=== PATIENT | female | born 1950 | race Two or more races ===

== ENCOUNTER 2019-10-13 15:47 | Emergency (ER) | payer SELFPAY ==
[2019-10-13] MEDS ORDERED: AMLODIPINE BESY10 MG ORAL (20:54)
--- NOTE | 2019-10-13 20:54 | Emergency Room Report ---
History of Present Illness General Chief Complaint: Hypertension Source: Patient Present Illness HPI 68-year-old female past mostly of hypertension, has been taking her grandmothers medications, endorses feeling lightheaded, blurred vision, states that her blood pressure is very high, presents with a blood pressure of 190, alleviated with blood pressure medication aggravated by not taking his blood pressure medication severity is mild, constant symptoms have been ongoing prior to arrival patient reports this happens when her blood pressure is elevated Allergies: Coded Allergies: No Known Allergies (Unverified , 10/13/19) Patient History Past Medical History: see triage record Reviewed Nursing Documentation: PMH: Agreed; PSxH: Agreed Review of Systems All Other Systems: negative except mentioned in HPI Physical Exam Non-tachycardic, systolic blood pressure 190s Sp02 EP Interpretation: reviewed, normal General Appearance: well appearing, no apparent distress, alert Head: normocephalic, atraumatic Eyes: bilateral eye PERRL, bilateral eye EOMI ENT: uvula midline, moist mucus membranes Neck: supple, thyroid normal, supple/symm/no masses Respiratory: lungs clear, no respiratory distress, no retraction, no accessory muscle use Cardiovascular #1: normal peripheral pulses, regular rate, rhythm, no edema, no gallop, no murmur Gastrointestinal: non tender, soft, no guarding, no rebound Musculoskeletal: normal inspection Neurologic: alert, oriented x3 Psychiatric: mood/affect normal Skin: no rash, warm/dry Medical Decision Making Diagnostic Impression: Primary Impression: Hypertension Qualified Codes: I10 - Essential (primary) hypertension ER Course Please note this patient's chart was retrospectively [facility] PM patient's chart was placed into the electronic record at approximately 8:48pm 68-year-old female presents with elevated blood pressure, patient was given 10 mg of amlodipine doubt ACS, blood work was drawn to evaluate patient, Reevaluation at 8:51 PM, patient's blood pressure is now systolic 160s patient feels completely asymptomatic Patient will be provided prescription patient counseled to follow-up with PCP to obtain longitudinal care Troponin negative EKG Diagnostic Results EKG Time: 16:29 EP Interpretation: NSR, rate 99, QTc 490, no acute ST elevations, left axis deviation Rhythm Strip Diag. Results Rhythm Strip Time: 20:52 EP Interpretation: yes Rate: 79 Rhythm: NSR, no PVC's, no ectopy Disposition: HOME, SELF-CARE Condition: Stable Scripts Amlodipine Besylate* (AMLODIPINE BESYLATE*) 10 Mg Tablet 10 MG ORAL DAILY, #90 TAB Prov: Jimbo Johnson MD 10/13/19 Referrals: NOT CHOSEN IPA/,REFERRING (PCP) [facility] Sylvie Mainson [facility]. [facility] Patient Instructions: Hypertension, [id number] Additional Instructions: The patient was provided with discharge instructions, notified to follow-up with a primary care doctor and or specialist in the next 24-48 hours, and to return to the ED if they have worsening of their symptoms. Please note that this report is being documented using [employer] technology. This can lead to erroneous entry secondary to incorrect interpretation by the dictating instrument. Jimbo Johnson MD Oct 13, 2019 20:54
[2019-10-13 21:02] LABS: BASOPHILS % (AUTO) 0.6 % (0.0-2.0); EOSINOPHILS % (AUTO) 0.5 % (0.0-3.0); HEMATOCRIT 42.7 % (37.0-47.0); HEMOGLOBIN 14.4 G/DL (12.0-16.0); LYMPHOCYTES % (AUTO) 21.4 % (20.0-45.0); MEAN CORPUSCULAR VOLUME 86 FL (80-99); NEUTROPHILS % (AUTO) 71.6 % (45.0-75.0); PLATELET COUNT 270 K/UL (150-450); RED BLOOD COUNT 4.99 M/UL (4.20-5.40); RED CELL DISTRIBUTION WIDTH 14.2 % (11.6-14.8); WHITE BLOOD COUNT 11.9 K/UL (4.8-10.8)
[2019-10-13 21:04] LABS: APPEARANCE,URINE CLEAR; BILIRUBIN, URINE NEGATIVE (NEGATIVE); COLOR,URINE PALE YELLOW; GLUCOSE, URINE (UA) NEGATIVE (NEGATIVE); KETONES,URINE NEGATIVE (NEGATIVE); LEUKOCYTE ESTERASE ,URINE NEGATIVE (NEGATIVE); NITRITE,URINE NEGATIVE (NEGATIVE); PH,URINE 7 (4.5-8.0); PROTEIN,URINE NEGATIVE (NEGATIVE); UROBILINOGEN,URINE NORMAL MG/DL (0.0-1.0)
[2019-10-13 21:49] LABS: POTASSIUM 2.7 MMOL/L (3.5-5.1); SODIUM 139 MMOL/L (136-145)
[2019-10-13 21:50] LABS: ANION GAP 12 mmol/L (5-15); BLOOD UREA NITROGEN 11 mg/dL (7-18); CARBON DIOXIDE 30 MMOL/L (21-32); CHLORIDE 97 MMOL/L (98-107); CREATININE 0.8 MG/DL (0.55-1.30)
[2019-10-13 21:51] LABS: CALCIUM 9.4 MG/DL (8.5-10.1)
[2019-10-13 22:02] LABS: ALANINE AMINOTRANSFERASE 35 U/L (12-78); ALBUMIN 3.7 G/DL (3.4-5.0); ALBUMIN/GLOBULIN RATIO 0.7 (1.0-2.7); ALKALINE PHOSPHATASE 82 U/L (46-116); ASPARTATE AMINO TRANSFERASE 35 U/L (15-37); BILIRUBIN,TOTAL 0.3 MG/DL (0.2-1.0)
== END 2019-10-13 21:05 | disposition home or self-care (01) ==
LOC: EMR 20:41
DX: I10 Essential (primary) hypertension (principal)
CPT/HCPCS: 36415; 80053; 81003; 84484; 85025; 93005; 99283